=== PATIENT | female | born 1985 | race Caucasian/White ===

== ENCOUNTER 2022-04-30 15:43 | Emergency (ER) | payer OTHER ==
[2022-04-30 17:07] VITALS: BP 131/77; PULSE 64; RESP 20; TEMP 98.6
--- NOTE | 2022-04-30 19:27 | XR ---
EXAMINATION TYPE: XR chest 2V DATE OF EXAM: 04/30/2022 COMPARISON: NONE HISTORY: Short of breath TECHNIQUE: 2 views FINDINGS: Heart is normal. Lungs are clear of infiltrate. No heart failure. Bony thorax is intact. IMPRESSION: Normal chest.
[2022-04-30] MEDS ORDERED: ALBUTEROL HFA INHALER INHALATION STA (21:19)
--- NOTE | 2022-04-30 22:31 | ED ---
URI HPI - General Chief Complaint: Upper Respiratory Infection Stated Complaint: Difficulty Breathing, Cough, Congestion Time Seen by Provider: 04/30/22 20:39 Source: patient Mode of arrival: ambulatory Limitations: no limitations - History of Present Illness Initial Comments: Patient is a 36-year-old female presenting with chief complaint of nasal conge stion and drainage and cough. Patient states that over the last week she has had nasal drainage and slight cough. She was seen in urgent care when symptoms started, she was given an antihistamine and steroids. Patient states that starting yesterday coughing has increased. After coughing fits she has some difficulty catching her breath. She has no known history of asthma or COPD. Patient states that is worse at night when she lays down. She denies any chest pain, shortness of breath, sore throat, dysphagia, headache, vision changes, fever, chills, nausea, vomiting, abdominal pain. - Related Data Previous Rx's Medication Instructions Recorded Albuterol Inhaler [Ventolin Hfa 1 - 2 puff INHALATION RT-Q6H PRN 04/30/22 Inhaler] #1 unit Benzonatate [Tessalon Perles] 100 mg PO TID PRN #20 capsule 04/30/22 Allergies Allergy/AdvReac Type Severity Reaction Status Date / Time Sulfa (Sulfonamide AdvReac Rash/Hives Verified 04/30/22 17:03 Antibiotics) Review of Systems ROS Statement: Those systems with pertinent positive or pertinent negative responses have been documented in the HPI. ROS Other: All systems not noted in ROS Statement are negative. Past Medical History Past Medical History: No Reported History Additional Past Surgical History / Comment(s): tubal ligation Past Psychological History: Anxiety Smoking Status: Current every day smoker Past Alcohol Use History: None Reported Past Drug Use History: None Reported General Exam Limitations: no limitations General appearance: alert, in no apparent distress Head exam: Present: atraumatic, normocephalic, normal inspection Eye exam: Present: normal appearance, EOMI. Absent: scleral icterus ENT exam: Present: normal exam, mucous membranes moist Neck exam: Present: normal inspection Respiratory exam: Present: wheezes (Slight wheezes in the right upper lung field). Absent: respiratory distress, rales, rhonchi, stridor Cardiovascular Exam: Present: regular rate, normal rhythm, normal heart sounds. Absent: systolic murmur, diastolic murmur, rubs, gallop, clicks Neurological exam: Present: alert, oriented X3, CN II-XII intact Psychiatric exam: Present: normal affect, normal mood Skin exam: Present: warm, dry, intact, normal color. Absent: rash Course Vital Signs 04/30/22 17:00 Temperature 98.6 F Pulse Rate 64 Respiratory 20 Rate Blood Pressure 131/77 O2 Sat by Pulse 99 Oximetry Medical Decision Making - Medical Decision Making Patient is a 36-year-old female presenting with chief complaint of nasal drainage and cough. Patient states that she's had these symptoms for a week, but yesterday symptoms began worsening. Patient has been taking antihistamine and steroids prescribed by urgent care. On examination there is slight wheezing over the right upper lung field. Otherwise exam is WNL. Chest x-rays negative for acute process. Patient is given albuterol here, she is swabbed for Covid and influenza. Patient is negative for Covid and influenza. She reports improvement after albuterol. Patient is provided with a prescription for albuterol inhaler and Tessalon Perles. Follow-up with PCP in one to 2 days. Report back to ER if any new or worsening symptoms. Discussed return parameters answered all questions. Patient conveyed verbal understanding and agreed to the plan. My attending is Dr. Gray. - Lab Data Lab Results 04/30/22 04/30/22 Range/Units 22:03 22:03 Coronavirus (PCR) Not Detected (Not Detectd) Influenza Type A RNA Not Detected (Not Detectd) Influenza Type B (PCR) Not Detected (Not Detectd) Disposition Clinical Impression: Upper respiratory tract infection Disposition: HOME SELF-CARE Condition: Good Instructions (If sedation given, give patient instructions): Upper Respiratory Infection (ED) Additional Instructions: Follow-up with PCP in one to 2 days. Report back to ER with any new or worsening symptoms. Take medication as prescribed. Prescriptions: Benzonatate [Tessalon Perles] 100 mg PO TID PRN #20 capsule PRN Reason: Cough Albuterol Inhaler [Ventolin Hfa Inhaler] 1 - 2 puff INHALATION RT-Q6H PRN #1 unit PRN Reason: Cough Is patient prescribed a controlled substance at d/c from ED?: No Referrals: None,Stated [Primary Care Provider] - 1-2 days Time of Disposition: 23:02
== END 2022-04-30 23:29 | disposition home or self-care (01) ==
LOC: EC 15:43
DX: J06.9 Acute upper respiratory infection, unspecified (principal); F17.200 Nicotine dependence, unspecified, uncomplicated; Z20.822 Contact with and (suspected) exposure to COVID-19; Z88.2 Allergy status to sulfonamides
CPT/HCPCS: 71046; 87502; 87635; 94640